=== PATIENT | male | born 1970 | race Hispanic/Latino ===

== ENCOUNTER → 2020-11-03 15:12 | Outpatient (CLI) | payer OTHER, SELFPAY ==
[2020-11-03] MEDS: COVID-19 VACC #2, MRNA(MOD) 100 MCG/0.5 ML VIAL IM (15:22)
== END ==
PROVIDERS: Visit Provider Internal Medicine
DX: Z23 Encounter for immunization (principal)
CPT/HCPCS: 0012A; 91301